=== PATIENT | male | born 1950 | race Caucasian/White ===

== ENCOUNTER → 2019-10-19 15:32 | Outpatient (CLI) | payer MEDICARE, OTHER, SELFPAY ==
--- NOTE | ~2019-10-19 | XR_ITS ---
EXAMINATION: XR wrist LT min 3V DATE: 10/19/2019 15:58 INDICATION: Osteoarthritis. TECHNIQUE: 4 views of left wrist were obtained. COMPARISON: Left hand radiographs 05/30/2012 FINDINGS: Bone alignment is normal. No fracture. There is mild osteoarthritis of radioscaphoid joint and triscaphe joint and severe osteoarthritis of first carpometacarpal joint. There is moderate osteo arthritis of scaphoid-capitate joint with large subchondral cyst in capitate. There is mild osteoarth ritis of first of fibular metacarpophalangeal joints. Again seen is a 2 mm radiopaque foreign body in the soft tissues radial to scaphoid. IMPRESSION: 1. Polyarticular osteoarthritis. 2. Chronic 2 mm radiopaque foreign body in the soft tissues radial to the scaphoid. Reviewed, dictated and finalized at location A. IMPRESSION: 1. Polyarticular osteoarthritis. 2. Chronic 2 mm radiopaque foreign body in the soft tissues radial to the scaph oid.
--- NOTE | ~2019-10-19 | XR_ITS ---
EXAMINATION: XR wrist RT min 3V DATE: 10/19/2019 15:59 INDICATION: Osteoarthritis. TECHNIQUE: 4 views of right wrist were obtained. COMPARISON: None. FINDINGS: Bone alignment is normal. No fracture. There is severe osteoarthritis of scapholunate-capit ate joint with large subchondral cyst in capitate. There is severe osteoarthritis of triscaphe joint, first carpometacarpal joint, and second metacarpophalangeal joint. There is moderate osteoarthritis of third metacarpophalangeal joint and mild osteoarthritis of first metacarpophalangeal joint. IMPRESSION: 1. Polyarticular osteoarthritis. Reviewed, dictated and finalized at location A.
== END ==
PROVIDERS: Visit Provider Plastic Surgery
DX: M19.041 Primary osteoarthritis, right hand (principal); M19.031 Primary osteoarthritis, right wrist
CPT/HCPCS: 73110

== ENCOUNTER 2020-03-14 07:52 | Outpatient (CLI) | payer MEDICARE, SELFPAY ==
--- NOTE | ~2020-03-14 | XR_ITS ---
XR lumbar spine 2-3V 03/14/2020 08:14 Indication: Low back pain Procedure: 3 views lumbar spine Comparison: 07/14/2014 Findings: There is multilevel facet hypertrophy with grade 1 spondylolisthesis at L3-4 and L4-5. Mild disc narrowing at L4-5 and L5-S1. No fracture or traumatic malalignment. Pedicles intact. Sacral for amen are symmetric. There is atherosclerosis. Impression: 1: Moderate lumbar spondylosis. Reviewed, dictated and finalized at location A. PACKER Impression: 1: Moderate lumbar spondylosis.
== END 2020-03-14 07:53 | disposition home or self-care (01) ==
LOC: ANHIMG 08:00
PROVIDERS: PCP Internal Medicine; Visit Provider Internal Medicine
DX: M54.5 Low back pain (principal); G89.29 Other chronic pain; M47.816 Spondylosis without myelopathy or radiculopathy, lumbar region
CPT/HCPCS: 72100

== ENCOUNTER 2021-06-08 08:17 | Outpatient (CLI) | payer MEDICARE, SELFPAY ==
--- NOTE | ~2021-06-08 | XR_ITS ---
EXAMINATION: [id number]_[id number]_CR EXAM DATE: 06/08/2021 08:38 INDICATION: No known recent injury provided at this time. Pain of the right foot. Painful lump latera l aspect. TECHNIQUE: Right foot standing dorsoplantar, lateral and oblique projections obtained and reviewed. There is no prior study for comparison. FINDINGS: There is pes planus. Small calcaneal spurs. There is moderate to severe 1st metatarsophala ngeal joint primary osteoarthritis. There are no acute fractures or dislocations identified. There i s no subcutaneous gas. Nonspecific soft tissue swelling, prominence lateral to the 5th metatarsal ba se without underlying osseous change. There are no radiopaque foreign bodies. There are no bony ero sions identified. IMPRESSION: 1. Nonspecific soft tissue prominence, swelling lateral to right 5th metatarsal base. 2. Moderate to severe 1st MTP osteoarthritis. 3. Pes planus. Reviewed, dictated and finalized at location A. [employer] SPECIALIST IMPRESSION: 1. Nonspecific soft tissue prominence, swelling lateral to right 5th metatarsa l base. 2. Moderate to severe 1st MTP osteoarthritis. 3. Pes planus.
== END 2021-06-08 08:18 | disposition home or self-care (01) ==
LOC: ANHIMG 08:20
PROVIDERS: PCP Internal Medicine; Visit Provider Internal Medicine
DX: M79.671 Pain in right foot (principal); M79.89 Other specified soft tissue disorders; M19.071 Primary osteoarthritis, right ankle and foot; M21.41 Flat foot [pes planus] (acquired), right foot
CPT/HCPCS: 73630

== ENCOUNTER 2021-08-29 09:52 | Outpatient (CLI) | payer MEDICARE, OTHER, SELFPAY ==
--- NOTE | 2021-08-29 10:00 | ECG_ITS ---
Measurements Intervals [place] Rate: 74 P: 50 DC: 149 QRS: 0 QRSD: 96 T: 34 QT: 378 QTc: 420 Interpretive Statements SINUS RHYTHM VENTRICULAR TRIGEMINY CONSIDER INFERIOR INFARCT, AGE INDETERMINATE ABNORMAL ECG Electronically Signed On 08-29-2021 14:13:29 CDT by Haseeb Bland D.O.
== END 2021-08-29 09:53 | disposition home or self-care (01) ==
PROVIDERS: PCP Internal Medicine; Visit Provider Urology
DX: Z01.818 Encounter for other preprocedural examination (principal); I10 Essential (primary) hypertension; R94.31 Abnormal electrocardiogram [ECG] [EKG]
CPT/HCPCS: 93005

== ENCOUNTER 2021-08-31 01:22 | Day surgery (SDC) | payer MEDICARE, OTHER, SELFPAY ==
--- NOTE | 2021-08-29 07:23 | PM.IMHP ---
H&P: HPI History of Present Illness Date/Time: 08/29/21 07:23 Chief Complaint: Difficulty urinating Narrative: patient is a several year history of progressive irritable and obstructive voiding symptoms secondary to BPH. He reports both urinary frequency urgency as well as his N/C and a sense of incomplete emptying. He has had only moderate response to attempts at medical management. Outpatient evaluation with urodynamics and transrectal ultrasonography revealed findings consistent with outlet obstruction secondary to BPH. After discussion of therapy options he has elected to proceed with a TURP. We did discuss alternative minimally invasive procedures. He is aware of the risk of this procedure including, but not limited to, adverse cardiopulmonary events, retrograde ejaculation. Postoperative hematuria persistent voiding symptoms. Review of Systems Cardiovascular: Cardiovascular: Denies chest pain, Denies lightheadedness, Denies palpitations and Denies dyspnea Respiratory: Respiratory: Denies dyspnea Gastrointestinal: Gastrointestinal: Denies diarrhea, Denies nausea and Denies vomiting Genitourinary: Genitourinary: Denies hematuria and Denies dysuria Endocrine: Endocrine: Denies palpitations [facility] Past Medical History Medical History (Updated 08/29/21 @ 07:25 by Jose Davies MD) Benign essential hypertension BMI 27.0-27.9,adult BMI 28.0-28.9,adult Boil, back BPH (benign prostatic hyperplasia) Chronic low back pain Colon cancer screening Diverticular disease DJD (degenerative joint disease) Ectopic beats Elevated homocysteine Encounter for Medicare annual wellness exam Encounter for routine adult health examination with abnormal findings Encounter for routine adult health examination without abnormal findings Encounter for special screening examination for neoplasm of prostate Foot pain Hearing loss Hx of Walters's palsy Hx of colonic polyps Hyperlipidemia Inclusion cyst 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 ALICIA on CPAP Peripheral neuropathy Statin intolerance Trigger finger of right hand Surgical History Surgical History History of bowel resection Status post total knee replacement, left Family History Family History Mother Family history of Alzheimer's disease Father Family history of primary malignant neoplasm of liver Social History Social History Smoking status: Never smoker Alcohol intake: never Meds Home Medications and Allergies Home Medications Medication Instructions Recorded Confirmed Type finasteride 5 mg tablet 5 mg PO DAILY 03/19/19 06/09/21 History hydrocortisone 1 %-pramoxine 1 % 1 applic RECTAL QID 03/19/19 06/09/21 History rectal foam (Proctofoam HC) omega-3 fatty acids 1,000 mg 2,000 mg PO BID 04/02/19 06/09/21 History capsule (Fish Oil Concentrate) calcium carb and lactate 200 2 tablet PO DAILY 09/07/19 06/09/21 History mg-vitamin D3 6.25 mcg (250 unit) tablet vitamin B complex 1 cap PO DAILY 05/04/20 06/09/21 History bempedoic acid 180 mg-ezetimibe 10 1 tablet PO DAILY #90 tabs 09/15/20 06/09/21 Rx mg tablet (Nexlizet) trazodone 50 mg tablet See Rx Instructions .Route 11/07/20 06/09/21 Rx .COMPLEX #180 tabs WelChol 3.75 gram oral powder See Rx Instructions .Route 04/23/21 06/09/21 Rx packet (colesevelam) .COMPLEX #90 packets amlodipine 10 mg tablet See Rx Instructions .Route 04/23/21 06/09/21 Rx .COMPLEX #90 tabs olmesartan 40 mg tablet See Rx Instructions .Route 04/23/21 06/09/21 Rx .COMPLEX #90 tabs diclofenac sodium 75 mg See Rx Instructions .Route 06/06/21 06/09/21 Rx tablet,delayed release .COMPLEX #180 tabs Allergies Allergy/AdvReac Type Severity Reaction Status Date / Time SARY Inhibitors Allergy Unknown Cough Verified 01/25/21 07:48 Glptxma-QIA-OdI Reductas
--- NOTE | 2021-08-29 08:18 | PC.NURSE ---
Report to the Outpatient Waiting Room, entrance under the green pavilion located off [facility], at time _0915 on date __08/31/21 . OR Time: __1115 . - You and your visitor will be asked a series of questions to screen for COVID 19 for your protection. - Only one visitor is allowed at this time. - The patient visitor is requested to leave or wait in car when not with patient. - A mask is required within the hospital. Patients may have clear liquids (water, carbonated beverages, clear teas, apple juice) until 3 hours prior to surgery with a maximum of 20 ounces. - No food from midnight until time of surgery - Infants may have breast milk until 4 hours before surgery, infant formula 6 hours prior to surgery. - Children will be allowed to drink immediately following surgery. If applicable, please bring a bottle or sippy cup to assist with drinking. Juice, water, soda, and popsicles are readily available. For infants on formula, please bring formula the day of surgery. Pacifiers are allowed. Take the following medications with a SIP of water the morning of surgery: ____AMLODIPINE Medications to discontinue per physician ___ALL VITAMINS AND SUPPLEMENTS 3 DAYS PRE OP Date to take last dose___08/28/21 Please no make-up, nail german, hairspray, perfume, deodorant, or body powder the day of surgery. No jewelry (including any body piercings) or valuables the day of surgery, leave them at home. Please take a shower or bath the night before, or the morning of, surgery with an antibacterial soap. Wear comfortable, loose fitting clothing. Children are encouraged to wear pajamas. - Jewelry must be removed prior to entering the operating room. Rings and piercings that are not removed may be cut off. - The hospital will not accept responsibility for valuables. - Please leave all valuables, including medications, at home the day of surgery. If you are going home after surgery, a licensed public transit trolley driver must drive you home. - NO public transportation without another adult. - We recommend that an adult stay with you for 24 hours following discharge. - We also recommend that you do not drive, make important decision, drink alcoholic beverages, or take any drugs that were not prescribed by your health care provider for at least 24 hours after your discharge time. For Pediatric surgeries, we recommend two adults accompany the child home (only one inside the building at this time). Follow any additional instructions given to you from your surgeon. If you or anyone in your household have experienced Covid symptoms in the past week, please notify your surgeon or the nurse liaison at the phone number below for possible testing. Telephone instructions given to __PATIENT and asked if any additional questions and then verbalized understanding. Patient advised to call surgeon office or pre surgery nurse liaison [phone] if any additional questions.
[2021-08-29 08:39] VITALS: BMI 27.8
[2021-08-31] VITALS (13 sets, daily range): BP systolic 96–136; BP diastolic 55–81; PULSE 34–66; RESP 11–20; TEMP 36.3–36.6; O2SAT 93–100; BMI 27.3
--- NOTE | 2021-08-31 06:32 | WPDHPUPDATE1 ---
History and Physical Update Update Date/Time: 08/31/21 06:32 History and Physical has been reviewed, including an updated exam of the patient. There are NO changes in the patient's condition. Risks, benefits, and alternatives have been discussed and questions answered. Patient agrees to proceed with procedure.
--- NOTE | 2021-08-31 09:56 | WPDANESEPPF ---
Anes - Initial Pre Proc Eval Procedure: Operation Date: 08/31/21 11:15 Proposed Procedures p Trans Urethral Resection Prostate - Jose Davies MD Date/Time: 08/31/21 09:56 Surgeon: Jose Davies MD Pre Op Diagnosis: BPH Patient Data Age: 71 Gender: M Height: 1.88 m Weight: 98.45 kg Allergies Allergy/AdvReac Type Severity Reaction Status Date / Time SARY Inhibitors Allergy Unknown Cough Verified 08/29/21 08:07 Vdioypz-OQW-HrN Reductase Allergy Unknown Joint Pain Verified 08/29/21 08:07 Inhibitor [Trjkmko-Env-Riu Reductase Inhibitor] Home Medications Medication Instructions Recorded Confirmed Type finasteride 5 mg tablet 5 mg PO DAILY 03/19/19 08/29/21 History omega-3 fatty acids 1,000 mg 2,000 mg PO BID 04/02/19 08/29/21 History capsule (Fish Oil Concentrate) calcium carb and lactate 200 1 tablet PO DAILY 09/07/19 08/29/21 History mg-vitamin D3 6.25 mcg (250 unit) tablet vitamin B complex 1 cap PO DAILY 05/04/20 08/29/21 History bempedoic acid 180 mg-ezetimibe 10 1 tablet PO DAILY #90 tabs 09/15/20 08/29/21 Rx mg tablet (Nexlizet) trazodone 50 mg tablet See Rx Instructions .Route 11/07/20 08/29/21 Rx .COMPLEX #180 tabs WelChol 3.75 gram oral powder See Rx Instructions .Route 04/23/21 08/29/21 Rx packet (colesevelam) .COMPLEX #90 packets olmesartan 40 mg tablet See Rx Instructions .Route 04/23/21 08/29/21 Rx .COMPLEX #90 tabs diclofenac sodium 75 mg See Rx Instructions .Route 06/06/21 08/29/21 Rx tablet,delayed release .COMPLEX #180 tabs amlodipine 10 mg tablet 5 mg PO DAILY 08/29/21 08/29/21 History tamsulosin 0.4 mg capsule 0.4 cap PO DAILY 08/29/21 08/29/21 History Patient hx anesthesia problems: none Family hx anesthesia problems: none Results Review: All pre-operative results and documents have been reviewed as part of the pre-operative evaluation. [facility] Past Medical History Medical History Benign essential hypertension BMI 27.0-27.9,adult BMI 28.0-28.9,adult Boil, back BPH (benign prostatic hyperplasia) Chronic low back pain Colon cancer screening Diverticular disease DJD (degenerative joint disease) Ectopic beats Elevated homocysteine Encounter for Medicare annual wellness exam Encounter for routine adult health examination with abnormal findings Encounter for routine adult health examination without abnormal findings Encounter for special screening examination for neoplasm of prostate Foot pain Hearing loss Hx of Walters's palsy Hx of colonic polyps Hyperlipidemia Inclusion cyst On long-term drug therapy ALICIA on CPAP Peripheral neuropathy Statin intolerance Trigger finger of right hand Surgical History Surgical History History of bowel resection Status post total knee replacement, left Family History Family History Mother Family history of Alzheimer's disease Father Family history of primary malignant neoplasm of liver Social History Social History Smoking status: Never smoker Alcohol intake: never Living arrangements: with family Spiritual care concerns: No Anes - Eval Final PreProcedure Day of Procedure 08/31/21 09:56 Patient weight: overweight Heart: regular rate and rhythm Lungs: clear to auscultation Airway: Mallampati scale class II Neurological: alert and oriented Last oral intake: >/= 8 hours ASA classification: III Emergent: no Anesthetic plan: proceed Anesthesia type and monitoring: general GIVS and standard monitoring Results Review: All pre-operative results and documents have been reviewed as part of the pre-operative evaluation. Informed Consent: The patient's anesthetic plan and its attendant risks and benefits were discussed with the patient/family/POA. Questions were leslie
[2021-08-31] MEDS: LACTATED RINGERS 1,000 ML 30 ML IV CONT ×2 (10:00→11:50)
[2021-08-31] MEDS: ceFAZolin 2 GM/D5W 50 ML 2 GM/50 ML BAG IVPB (10:27)
[2021-08-31] MEDS: KETOROLAC 15 MG/ML VIAL (*BKC) IV PUSH (10:30)
[2021-08-31] MEDS: LIDOCAINE HCL 2% GEL UROJET 10 ML PKG MUCOUS MEM (10:42)
--- NOTE | 2021-08-31 11:21 | W.PM.PROC2 ---
Procedure Note - Detailed Date of Procedure 08/31/21 Pre-op Diagnosis BPH Post-op Diagnosis Same Procedure Performed TURP Surgeon Jose Davies MD Description of Procedure The patient was brought to the operative suite where he is prepped and draped in routine sterile fashion while in the dorsal lithotomy position after the uneventful induction of a [general LMA/spinal] anesthetic. A 27 [place] resectoscope sheath was placed into his bladder. He had no urethral strictures. The patient had [trilobar/bilobar] hyperplasia with a small median lobe. The bladder itself was endoscopically normal, showing no mucosal hyperemia, intravesical neoplasm or foreign bodies. There was a single, orthotopic ureteral orifice bilaterally. These orifices were identified and preserved throughout the remainder of the procedure. Attention was first turned to resection of the median lobe. This resection was undertaken from the bladder neck to the verumontanum and carried out until the transverse fibers of the bladder neck were identified. The left lateral lobe was then resected starting at the 6 o'clock position, working counter clockwise to the 12 o'clock position. Again, resection was carried out from the bladder neck to the verumontanum until the capsular fibers of the prostate were identified. The right lateral lobe was resected in a similar fashion starting at the 6 o'clock position working clockwise to the 12 o'clock position and carried out until the capsular fibers of the prostate were identified. Apical tissue was then circumferentially resected. All chips were evacuated from the bladder using an [employer] evacuator. Hemostasis was obtained with electric cautery. The ureteral orifices were again inspected and found to be without injury. Estimated blood loss throughout this procedure was 25cc. The patient was taken to recovery room having tolerated this well. Pathology Yes Complications No immediate complications Condition Stable Disposition PACU
--- NOTE | 2021-08-31 12:30 | SUR.PHASEI ---
1215; PT AWAKE AND ALERT. TALKATIVE. EATING ICE CHIPS
--- NOTE | 2021-08-31 13:04 | PC.NURSE ---
This patient, Lino Wu, was admitted to Medical Room 243-. Patient/family oriented to hospital policies and general routines including ID bracelet, bed and alarms, visiting hours, pain management, procedures, bathroom and other care routines, personal items, smoking policy, room service/diet, and visiting hours. Information on how to activate the Rapid Response Team has been discussed. Patient/Family are encouraged to report perceived risks to care and to ask questions if they do not understand what they are told or what they should do.
[2021-08-31] MEDS: DEXTROSE 5%/LACTATED RINGERS 1,000 ML 125 ML IV CONT (13:23)
[2021-08-31] MEDS: DOCUSATE SODIUM 100 MG CAPSULE PO (16:19)
[2021-08-31] MEDS: traZODone HCL 50 MG TABLET 100 MG BY MOUTH (22:06)
[2021-09-01 00:18] VITALS: BP 103/46; PULSE 65; RESP 20; TEMP 36.5; O2SAT 95
[2021-09-01 04:13] VITALS: BP 124/60; PULSE 60; RESP 20; TEMP 36.1; O2SAT 98
[2021-09-01 06:07] LABS: Anion Gap 3 mmol/L (8-16); Blood Urea Nitrogen 18 mg/dL (9-20); Calcium 8.8 mg/dL (8.4-10.2); Carbon Dioxide 29 mmol/L (22-30); Chloride 102 mmol/L (98-107); Estimated CRCL calculation 77 ml/min; Estimated Glomerular Filt Rate > 60; Glucose 96 mg/dL (65-110); Potassium 4.3 mmol/L (3.4-5.0); Sodium 134 mmol/L (137-145)
[2021-09-01 06:11] LABS: Hematocrit 41.8 % (42.0-52.0); Hemoglobin 13.6 g/dL (14.0-18.0)
--- NOTE | 2021-09-01 07:31 | WPDUROPN2 ---
Progress Note: A&P Assessment and Plan (1) BPH loc w urin obs/LUTS: Code(s): N40.1 - Benign prostatic hyperplasia with lower urinary tract symptoms Status: Acute Assessment and Plan: Doing well POD #1 - urine clear and tolerating diet. Stop CBI / voiding trial later this morning. Subjective Subjective Date/Time Seen: 09/01/21 07:31 Comfortable, no complaints Review of Systems Cardiovascular: Cardiovascular: Denies chest pain, Denies lightheadedness, Denies palpitations and Denies dyspnea Respiratory: Respiratory: Denies dyspnea Gastrointestinal: Gastrointestinal: Denies diarrhea, Denies nausea and Denies vomiting Genitourinary: Genitourinary: Denies hematuria and Denies dysuria Endocrine: Endocrine: Denies palpitations Exam Const: General: no acute distress Resp: Effort & Inspection: normal respiratory effort GI: Inspection: non-distended GI Palp: No abdominal tenderness and No Guarding due to palpation present (GI) Auscultation: normal bowel sounds Objective Data Vital Signs Vital Signs: Vital Signs - 24 hr 08/31/21 10:40 08/31/21 11:27 08/31/21 11:40 Temperature 97.8 F 97.6 F Pulse Rate 63 61 60 Respiratory Rate 16 11 L 14 Blood Pressure 127/80 136/71 121/77 Pulse Oximetry 97 97 100 Oxygen Delivery Room Air Simple Face Mask Simple Face Mask Oxygen Flow Rate 6 6 08/31/21 11:55 08/31/21 12:10 08/31/21 12:25 Temperature Pulse Rate 56 L 55 L 56 L Respiratory Rate 14 18 18 Blood Pressure 115/61 128/76 111/73 Pulse Oximetry 100 97 98 Oxygen Delivery Simple Face Mask Room Air Room Air Oxygen Flow Rate 6 08/31/21 13:00 08/31/21 13:15 08/31/21 13:45 Temperature 97.3 F L 97.6 F 97.6 F Pulse Rate 48 L 51 L 50 L Respiratory Rate 18 18 18 Blood Pressure 124/62 119/73 120/55 L Pulse Oximetry 99 96 95 Oxygen Delivery Oxygen Flow Rate 08/31/21 14:45 08/31/21 18:16 08/31/21 20:17 Temperature 97.5 F L 97.9 F 97.6 F Pulse Rate 34 L 66 65 Respiratory Rate 16 16 20 Blood Pressure 96/73 L 133/81 123/58 L Pulse Oximetry 93 100 97 Oxygen Delivery Oxygen Flow Rate 08/31/21 20:21 09/01/21 00:18 09/01/21 04:13 Temperature 97.6 F 97.7 F 96.9 F L Pulse Rate 65 65 60 Respiratory Rate 20 20 20 Blood Pressure 123/58 L 103/46 L 124/60 Pulse Oximetry 97 95 98 Oxygen Delivery Oxygen Flow Rate Intake/Output Intake/Output: Intake & Output 08/29/21 08/30/21 08/31/21 09/01/21 23:59 23:59 23:59 23:59 Intake Total 2120 290 Output Total 5450 1450 Balance -3330 -1160 Meds/Results Medications: Active Medications Generic Name Dose Route Start Last Admin Trade Name Freq PRN Reason Stop Dose Admin Hydrocodone Bitart/Acetaminophen 1 tab 08/31/21 12:31 Hydrocodone/Acetaminophen (*Crx) 5-325 Mg Tablet PO Q4H PRN Pain Rated 1-6 Amlodipine Besylate 5 mg 09/01/21 09:00 Amlodipine Besylate 5 Mg Tablet PO DAILY [facility] Cephalexin HCl 500 mg 09/01/21 09:00 Cephalexin 500 Mg Capsule PO QID [facility] Docusate Sodium 100 mg 08/31/21 17:00 08/31/21 16:19 Docusate Sodium 100 Mg Capsule PO 100 mg BID [facility] Administration Hyoscyamine 0.125 mg 08/31/21 12:31 Hyoscyamine Sulfate 0.125 Mg Tablet SUBLINGUAL Q6H PRN Bladder Spasm Miscellaneous Information 1 each 08/31/21 00:01 Colesevelam [Welchol] 3.75 Gram Powder In Packet Is Non Formulary Can Patient Use From Angella XX 09/30/21 00:00 CLARIFY [facility] Miscellaneous Information 1 each 08/31/21 00:01 Bempedoic Acid-Ezetimibe [Nexlizet] 180-10 Mg Tablet Is Non Formulary Can Patient Use From XX 09/30/21 00:00 CLARIFY [facility] Miscellaneous Information 1 each 08/31/21 00:01 Calcium Carb,Lactat-Vitamin D3 200 Mg Calcium -250 Unit Tablet Is Non Formulary. Can We S XX 09/30/21 00:00 CL[facility]IFY [facility] Morphine Sulfate 2 mg 08/31/21 12:31 Morphine Sulfate (*Crx) 2 Mg/Ml Inj IV PUSH Q2H PRN Pain Rated 7-10 Naloxone HC
[2021-09-01 08:02] VITALS: BP 127/77; PULSE 69
[2021-09-01] MEDS: DOCUSATE SODIUM 100 MG CAPSULE PO (08:03)
[2021-09-01] MEDS: amLODIPine BESYLATE 5 MG TABLET PO (08:04)
[2021-09-01] MEDS: VITAMIN B COMPLEX CAPSULE 1 CAP PO (08:04)
[2021-09-01] MEDS: CEPHALEXIN 500 MG CAPSULE PO ×2 (08:04→13:05)
[2021-09-01] MEDS: OLMESARTAN MEDOXOMIL 20 MG TABLET 40 MG PO (08:05)
--- NOTE | 2021-09-01 09:12 | WPDANESPN ---
Anes - Prog Note Post-Op Date/Time: 09/01/21 09:12 Vital Signs: Last Vital Signs Temp 36.1 C L 09/01/21 04:13 Pulse 69 09/01/21 08:02 Resp 20 09/01/21 04:13 BP 127/77 09/01/21 08:02 Pulse Ox 98 09/01/21 04:13 O2 Del Method Room Air 08/31/21 12:25 O2 Flow Rate 6 08/31/21 11:55 Pain Score (VAS): 0 I/O: Intake & Output 08/31/21 09/01/21 09/01/21 23:59 07:59 15:59 Intake Total 1770 290 460 Output Total 1750 1450 Balance 20 -1160 460 Laboratory Tests 09/01/21 05:17 09/01/21 05:17 09/01/21 09/01/21 05:17 05:17 Hgb 13.6 L Hct 41.8 L Sodium 134 L Potassium 4.3 Chloride 102 Carbon Dioxide 29 Anion Gap 3 L BUN 18 Creatinine 0.90 Estim Creat Clear Calc 77 Estimated GFR > 60 Glucose 96 Calcium 8.8 Patient Feedback: Patient satisfied with anesthetic care.
[2021-09-01 10:30] VITALS: BP 137/120; PULSE 67; RESP 16; TEMP 36.4; O2SAT 99
--- NOTE | 2021-09-01 12:51 | PM.DS ---
DS: Admitting Diagnosis Discharge Date 09/01/2021 Admitting Diagnosis BPH DS: Summary Hospital Course Hospital Course: This patient with longstanding prostatism refractory for medical management was admitted on the morning of his planned TURP. The procedure was undertaken on that same day in an uneventful fashion. His post-operative course was, likewise, uneventful. On the evening of the procedure he was tolerating a diet. On POD#1 his urine was clear on CBI. The urine remained clear and, therefore, the catheter was removed late morning. The patient was observed for several hours, until he demonstrated he could void effectively without significant hematuria. He was discharged with careful instruction on limiting physical activity x2 weeks and plans to f/ in 2-3 weeks. At discharge he was comfortable and tolerating a diet. Time Spent with Patient Time attestation: Total time spent providing and/or coordinating discharge services: Exam Const: General: no acute distress Resp: Effort & Inspection: normal respiratory effort GI: Inspection: non-distended GI Palp: No abdominal tenderness and No Guarding due to palpation present (GI) Auscultation: normal bowel sounds DS: Data Data Completed and Pending Pending studies at discharge: Pending at discharge 08/31/21 10:57 Surgical [PTH] Routine Labs on day of discharge: Labs from last 24 hours 09/01/21 09/01/21 05:17 05:17 Hgb 13.6 L Hct 41.8 L Sodium 134 L Potassium 4.3 Chloride 102 Carbon Dioxide 29 Anion Gap 3 L BUN 18 Creatinine 0.90 Estim Creat Clear Calc 77 Estimated GFR > 60 Glucose 96 Calcium 8.8 Discharge Plan Discharge Patient Disposition: Home, Self-Care Discharge Instructions: 1) Activity: No lifting/straining >15lbs. x2 weeks. 2) Diet: Resume normal pre-admission diet. 3) Follow-up: 2-3 weeks / call office for appointment ([phone]). Stand Alone Forms: General Discharge Instructions Discharge Orders: Discharge Order (Routine); Ordered 09/01/21 Ordered By: Jose Davies Discharge Medications: New hydrocodone-acetaminophen 5-325 mg tablet 1 - 2 tablet PO Q6H PRN (Reason: pain) Qty: 20 0RF docusate sodium [Colace] 100 mg capsule 100 mg PO DAILY Qty: 30 0RF cephalexin 500 mg capsule 500 mg PO Q8H Qty: 9 0RF Continued calcium carb,lactat-vitamin D3 200 mg calcium -250 unit tablet 1 tablet PO DAILY Nexlizet 180-10 mg tablet 1 tablet PO DAILY Qty: 90 3RF Rx Instructions: D/C the Zetia. vitamin B complex Capsule 1 cap PO DAILY amlodipine 10 mg tablet 5 mg PO DAILY Rx Instructions: TAKE 1 TABLET DAILY trazodone 50 mg tablet See Rx Instructions .ROUTE .COMPLEX Qty: 180 3RF Dose Instruction: TAKE 2 TABLETS AT BEDTIME FOR SLEEP Rx Instructions: TAKE 2 TABLETS AT BEDTIME FOR SLEEP colesevelam [WelChol] 3.75 gram powder in packet See Rx Instructions .ROUTE .COMPLEX Qty: 90 3RF Dose Instruction: MIX AND DRINK 1 PACKET DAILY DISSOLVED IN 120 TO 240 ML OF WATER. STIR AND DRINK WITH A MEAL. Rx Instructions: MIX AND DRINK 1 PACKET DAILY DISSOLVED IN 120 TO 240 ML OF WATER. STIR AND DRINK WITH A MEAL. olmesartan 40 mg tablet See Rx Instructions .ROUTE .COMPLEX Qty: 90 3RF Dose Instruction: TAKE 1 TABLET DAILY Rx Instructions: TAKE 1 TABLET DAILY diclofenac sodium 75 mg tablet,delayed release (DR/EC) See Rx Instructions .ROUTE .COMPLEX Qty: 180 1RF Dose Instruction: TAKE 1 TABLET TWICE A DAY Rx Instructions: TAKE 1 TABLET TWICE A DAY Held omega-3 fatty acids [Fish Oil Concentrate] 1,000 mg capsule 2,000 mg PO BID Hold Instructions: Resume on 09/13/21. Discontinued finasteride 5 mg tablet 5 mg PO DAILY tamsulosin 0.4 mg capsule 0.4 cap PO DAILY
== END 2021-09-01 13:13 | disposition home or self-care (01) ==
LOC: ANHSURGERY 09:12 → ANH2MED 12:28
PROVIDERS: PCP Internal Medicine; Visit Provider Urology
PROC: 0VT08ZZ Resection of Prostate, Via Natural or Artificial Opening Endoscopic (ICD-10-PCS; CPT 52601; principal; 2021-08-31 11:15)
DX: N40.1 Benign prostatic hyperplasia with lower urinary tract symptoms (principal); R33.8 Other retention of urine; N13.9 Obstructive and reflux uropathy, unspecified; I10 Essential (primary) hypertension; G47.33 Obstructive sleep apnea (adult) (pediatric); M19.90 Unspecified osteoarthritis, unspecified site; I49.49 Other premature depolarization; E72.11 Homocystinuria; E78.5 Hyperlipidemia, unspecified; G62.9 Polyneuropathy, unspecified
CPT/HCPCS: 52601; 36415; 80048; 85014; 85018; 88305; A9270; C1758; J0690; J1100; J1885; J2405; J2704; J3010; J7120; J7121

== ENCOUNTER 2022-03-07 07:18 | Outpatient (CLI) | payer MEDICARE, OTHER, SELFPAY ==
--- NOTE | ~2022-03-07 | XR_ITS ---
EXAM: XR shoulder LT min 2V DATE: 03/07/2022 07:32 HISTORY: R29.898 - Other symptoms and signs involving the musculos... . COMPARISON: 07/14/2014. FINDINGS: Left upper lobe calcified granulomas. Decreased mineralization. No fracture or dislocation . No lytic or blastic lesion. Moderate AC joint and mild glenohumeral joint osteoarthritis. No erosio n or periosteal change. Soft tissues within normal limits. IMPRESSION: No acute osseous finding in the left shoulder. Reviewed, dictated and finalized at location K. TRUCKER
== END 2022-03-07 07:19 | disposition home or self-care (01) ==
LOC: ANHIMG 07:20
PROVIDERS: PCP Internal Medicine; Visit Provider Internal Medicine
DX: M25.512 Pain in left shoulder (principal); R29.898 Other symptoms and signs involving the musculoskeletal system
CPT/HCPCS: 73030

== ENCOUNTER 2023-01-02 08:08 | Outpatient (CLI) | payer MEDICARE, OTHER, SELFPAY ==
--- NOTE | ~2023-01-02 | NM_ITS ---
EXAMINATION: NM bone scan whole body DATE: 01/02/2023 12:27 INDICATION: Prostate cancer TECHNIQUE: 26.5 mCi Tc-99m HDP was administered intravenously. Delayed whole-body scintigrams were o btained. COMPARISON: CT dated 01/02/2023, right shoulder radiographs dated 12/07/2022 FINDINGS: Scattered likely degenerative joint centered uptake with corresponding severe osteoarthritic changes on prior radiographs at the right glenohumeral joint and on the prior CT at the costovertebral articu lations on the right at T7 and on the left at T8 and T9. Additional likely degenerative joint centere d uptake at the right knee and multiple joints at the bilateral wrists, hands and feet and disc cente red uptake at the lower cervical spine. Photopenic defect associated with a left total knee arthropla sty. There is a focus of prominent uptake at the midline of the anterior upper chest in the region of the sternomanubrial articulation suggesting is also likely degenerative in etiology. No other suspic ious foci of abnormal bone uptake to suggest metastatic disease. IMPRESSION: 1. Scattered likely degenerative joint and disc centered uptake as detailed above. No lesion suspicio us for metastatic disease. Reviewed, dictated and finalized at location A. IMPRESSION: 1. Scattered likely degenerative joint and disc centered uptake as detailed abo ve. No lesion suspicious for metastatic disease.
--- NOTE | ~2023-01-02 | CT_ITS ---
CT of the Abdomen and Pelvis: Indication: Prostate cancer Technique: 2.5 mm axial scans were obtained through the abdomen and pelvis following intravenous adm inistration of 100 cc of Omnipaque 350. Dose reduction technique was used on this scan by utilizing a utomated exposure control and iterative reconstruction technique. The dose-length product (DLP) was 9 58.43 mGy-cm. COMPARISON: 05/20/2017 Findings: Scans through the lung bases demonstrate 2 mm left basilar pulmonary nodule. There are min imal peripheral chronic interstitial changes. Small hiatal hernia noted. The liver, spleen, pancreas, gallbladder, right adrenal gland, and kidneys are within normal limits. There is a 1.3 cm left adrenal nodule. There are atherosclerotic calcifications of the aorta. No lym phadenopathy. No bowel obstruction or bowel wall thickening. Rectosigmoid anastomosis noted. Images through the pelvis were performed. Urinary bladder unremarkable. No gross prostate lesion iden tified on CT imaging. No ascites. No suspicious osseous lesion identified. Impression: No definite evidence for metastatic disease. 1.3 cm left adrenal nodule stable since 2017, consistent with adenoma. 2 mm left basilar pulmonary nodule, most likely benign. Reviewed, dictated and finalized at location . Impression: No definite evidence for metastatic disease. 1.3 cm left adrenal nodule stable since 2017, consistent with adenoma. 2 mm left basilar pulmonary nodule, most likely benign.
[2023-01-02 08:30] LABS: Estimated Glomerular Filt Rate > 60
== END 2023-01-02 08:09 | disposition home or self-care (01) ==
LOC: ANHIMG 08:08
PROVIDERS: PCP Internal Medicine; Visit Provider Urology
DX: C61 Malignant neoplasm of prostate (principal); R91.1 Solitary pulmonary nodule
CPT/HCPCS: 74177; 78306; A9503; Q9967

== ENCOUNTER 2023-04-05 07:28 | Outpatient (CLI) | payer MEDICARE, OTHER, SELFPAY ==
--- NOTE | ~2023-04-05 | MR_ITS ---
EXAMINATION: MR pelvis wo/w con DATE: 04/05/2023 08:34 INDICATION: Prostate cancer. TECHNIQUE: Magnetic resonance imaging (MRI) of the pelvis was performed without and with 20 mL MultiH ance intravenous contrast. COMPARISON: CT abdomen and pelvis 01/02/2023 FINDINGS: The prostate is normal in size. There is diverticulosis of the colon without evidence of diverticulit is. There is a right inguinal hernia containing fat. There are no pathologically enlarged lymph nodes . There is a spacer between the rectum and prostate. No ascites. There is no osseous metastatic disea se. IMPRESSION: 1. No evidence of metastatic disease. Reviewed, dictated and finalized at location E. RAL TECHNICIAN
== END 2023-04-05 07:29 | disposition home or self-care (01) ==
PROVIDERS: PCP Internal Medicine; Visit Provider Radiology Radiation Oncology
DX: C61 Malignant neoplasm of prostate (principal)
CPT/HCPCS: 72197; A9577

== ENCOUNTER 2023-06-21 08:04 | Outpatient (CLI) | payer MEDICARE, SELFPAY ==
--- NOTE | ~2023-06-21 | US_ITS ---
Abdominal Sonogram: Real-time sonographic imaging of the abdomen was performed. Clinical History: Abnormal LFTs Findings: The liver appears echogenic, with no evidence of mass lesion or bile duct dilatation. Main portal vein demonstrates normal direction of flow. The spleen is normal in size without evidence of focal lesion. The gallbladder is well distended, without evidence of gallstone. 4 mm gallbladder wal l polyp present. The common bile duct measures 5 mm. The visualized pancreas, aorta, and IVC are unr emarkable. The right kidney measures 10.3 cm in length and the left kidney measures 11.9 cm. There is no hydronephrosis or renal calculus. Impression: Diffuse fatty infiltration of liver. 4 mm gallbladder wall polyp. Reviewed, dictated and finalized at location . Impression: Diffuse fatty infiltration of liver. 4 mm gallbladder wall polyp.
== END 2023-06-21 08:05 ==
PROVIDERS: PCP Internal Medicine; Visit Provider Internal Medicine
DX: R74.01 Elevation of levels of liver transaminase levels (principal); K76.0 Fatty (change of) liver, not elsewhere classified; K82.4 Cholesterolosis of gallbladder
CPT/HCPCS: 76700

== ENCOUNTER 2023-07-07 07:25 | Outpatient (CLI) | payer MEDICARE, OTHER, SELFPAY ==
--- NOTE | ~2023-07-07 | MR_ITS ---
MRI of the right shoulder Technique: Axial proton-density fat-sat images, coronal proton density fat-sat and T2 fat-sat images, and sagittal T1-weighted and T2 fat-sat images were acquired. Clinical History: Pain Findings: There is advanced AC joint degenerative change, with probably superior bony productive taylor ge at the distal clavicle and acromion. Coracoclavicular, coracoacromial, and coracohumeral ligaments appear intact. Supraspinatus and infraspinatus tendons demonstrate moderate to advanced tendinosis without partial o r full-thickness tear. Subscapularis tendon is intact. Tendon of the long head of the biceps is intac t with intra-articular tendinosis. There is probable circumferential degenerative labral tearing. There is severe osteoarthritis of the glenohumeral joint, with diffuse joint space narrowing, diffuse grade IV chondromalacia, and multifocal subchondral cystic change at the humeral head and glenoid. I nferior glenohumeral ligament is intact. There are small glenohumeral joint effusion. There is minima l fluid in the subacromial/subdeltoid bursa. No muscle atrophy or edema. Impression: Severe osteoarthritis of the glenohumeral joint, as detailed above. Associated probable circumferential degenerative labral tearing. Rotator cuff tendinosis without partial or full-thickness tear. Advanced AC joint degenerative change. Reviewed, dictated and finalized at [facility]. Impression: Severe osteoarthritis of the glenohumeral joint, as detailed above. Associated probable circumferential degenerative labral tearing. Rotator cuff tendinosis without partial or full-thickness tear. Advanced AC joint degenerative change.
== END 2023-07-07 07:26 | disposition home or self-care (01) ==
LOC: ANHIMG 07:26
PROVIDERS: PCP Internal Medicine; Visit Provider Internal Medicine
DX: M19.011 Primary osteoarthritis, right shoulder (principal); M75.21 Bicipital tendinitis, right shoulder
CPT/HCPCS: 73221

== ENCOUNTER 2024-07-23 01:19 | Day surgery (SDC) | payer MEDICARE, OTHER, SELFPAY ==
[2024-07-14 13:51] VITALS: BMI 29.7
--- OUTSIDE RECORDS SUMMARY | 2024-07-23 01:23 | XMS_ITS | Clinical Summary ---
Author Organization [facility] [address] [place] [id number] Care Team Providers Care Pattern Clerk Name Role Phone Jerry Lambert MD Primary Care Provider [phone] Allergies No known active allergies Medications traZODone (DESYREL) 50 mg tablet Take 2 tablets (100 mg total) by mouth nightly 0 Active nebivoloL (BYSTOLIC) 10 mg tablet Take 1 tablet (10 mg total) by mouth every morning [address] (VOLTAREN) 75 mg EC tablet Take 1 tablet (75 mg total) by mouth 3 (three) times a day 0 Active WelChoL 3.75 gram powder in packet Take by mouth every morning 0 Active Nexlizet 180-10 mg tablet Take 1 tablet by mouth every morning 1 Active amLODIPine (NORVASC) 10 mg tablet Take 0.5 tablets (5 mg total) by mouth every morning 0 Active omega-3 fatty acids-fish oil 300-1,000 mg capsule Take 2 capsules (2 g total) by mouth every morning Active metFORMIN (GLUCOPHAGE) 500 mg tablet Take 1 tablet (500 mg total) by mouth 2 (two) times a day with meals 4 Active mupirocin (BACTROBAN) 2 % ointment Apply topically daily 4 Active vitamin b complex tablet Take 1 tablet by mouth every morning Active mirabegron ER (MYRBETRIQ) 50 mg tablet extended release 24 hr Take 1 tablet (50 mg total) by mouth every morning Active docusate sodium (COLACE) 100 mg capsuleIndicati ons:constipatio n Take 1 capsule (100 mg total) by mouth 2 (two) times a day For constipation. Hold if having loose stools or diarrhea. 30 capsule 1 4 Active HYDROcodone-lisseth taminophen (NORCO) 5-325 mg per tabletIndicatio ns:Pain Take 1-2 tablets every 4 hours as needed for pain 32 tablet 4 Active Additional Information Patient not taking.Reported on 09/16/2023 aspirin 81 mg enteric coated tablet Take 1 tablet (81 mg total) by mouth daily 30 tablet 4 Active Active Problems Problem Noted Date Diagnosed Date Arthritis of shoulder region, right 07/30/2023 Arthritis of right shoulder region 07/11/2023 Surgical History Surgery Date Site/Laterality Comments CT GUIDED DRAINAGE PERITONEAL OR RETROPERITONEAL FLUID COLLECTION 02/07/2015 N/A JOINT REPLACEMENT 04/01/2011 - 03/31/2012 Left TKA COLON SURGERY 04/01/2021 - 03/31/2022 d/t diverticulitits PROSTATE SURGERY TRANSURETHRAL RESECTION OF PROSTATE 04/01/2021 - 03/31/2022 FOOT SURGERY Left pulled tendon from heel bone and fx heel bone SHOULDER ARTHROSCOPY 07/30/2023 Right right total shoulder arthroplasty Medical History Medical History Date Comments Hypertension Prostate cancer (HCC) Diverticulitis 2018 Arthritis Sleep apnea Disorders of glucose transport, unspecified 2023 Vitamin D deficiency, unspecified Diverticulitis of colon Family History Medical History Relation Name Comments Liver cancer Father Alzheimer's disease Mother Relation Name Status Comments Brother Alive Father Mother Social History Tobacco Use Types Packs/Day Years Used Date Smoking Tobacco: Never Smokeless Tobacco: Never Tobacco Cessation:Counseling Given: Not Answered AUDIT-C Answer Date Recorded Q1: How often do you have a drink containing alcohol? Never 07/22/2023 Q2: How many drinks containi ng alcohol do you have on a typical day when you are drinking? Patient does not drink Q3: How often do you have si x or more drinks on one occasion? Never 07/22/2023 Personal Safety Answer Date Recorded Have you ever been in or are you currently in a harmful physical or emotional relationship or is someone making you feel afraid or unsafe? 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 Gender Identity Not on file Sexual Orientation Not on file Obstetrics History Last Filed Vital Signs Vital Sign Reading Time Taken Comments Blood Pressure 117/72 07/31/2023 12:00 PM CDT Pulse 79 07/31/2023 12:00 PM CDT Temperature 37.2 C (98.9 F) 07/31/2023 12:00 PM CDT Respiratory Rate 16 07/31/2023 12:00 PM CDT Oxygen Saturation 94% 07/31/2023 12:00 PM CDT Inhaled Oxygen Concentration - - Weight 105.7 kg (233 lb) 01/30/2024 9:55 AM CDT Height 188 cm (6' 2 ) 01/30/2024 9:55 AM CDT Body Mass Index 29.92 01/30/2024 9:55 AM CDT Plan of Treatment Health Maintenance Due Date Last Done Comments Albumin Creatinine Ratio, Urine 1950 Colon Cancer Screening-Colonoscopy 1950 Depression Screening 1950 Hepatitis C Screening 1950 Dilated Eye Exam 1950 Foot Exam 1950 Hepatitis B Screening 01/07/1968 Well Visit 65+ 2015 Lipid Panel 02/02/2016 02/01/2015 Covid-19 Vaccine (2023-2 5 season) 2023 02/01/2023, 01/29/2022, 10/19/2021, Additional history exists Hemoglobin A1C 01/09/2024 07/10/2023 Fall Risk Assessment 07/30/2024 07/31/2023 eGFR 07/30/2024 07/31/2023, 07/22/2023 Influenza Vaccine (Season Ended) 2024 01/11/2023, 01/29/2022, 01/02/2021, Additional history exists DTaP/Tdap/Td Vaccine (3 - Td or Tdap) 04/02/2029 04/02/2019, 12/24/2012 Pneumococcal vaccine 65+ Completed 01/31/2019, 05/2014 Zoster Vaccine Completed 09/09/2019, 04/02/2019 Medical Devices Implanted Type Area Wood Processing Worker Device Identifier Shelf Expiration Date Model / Serial / Lot [email or web address] [place] R+G High Viscosity Cement Bone Gentamicin Arthroplasty [id number] - [id number] Implanted:Qty: 1 on 07/30/2023 by Mart Stacy MD at [facility] Right: Shoulder [employer] [id number] 05/29/2026 [id number] / / [id number] [employer] Component Glenoid Peg Altivate Anatomic 50mm Polyethylene 521-07-250 - [id number] Implanted:Qty: 1 on 07/30/2023 by Mart Stacy MD at [facility] Right: Shoulder [employer] 09/08/2026 521-07-25 0 / / [id number] [employer] Stem Humeral Shoulder Porous Altivate Anatomic 21mm Titanium 520-08-021 - [id number] Implanted:Qty: 1 on 07/30/2023 by Mart Stacy MD at [facility] Right: Shoulder [employer] 11/08/2026 520-08-02 1 / / [id number] [employer] Head Humeral Shoulder Neutral Altivate Anatomic [id number] [employer] 520-50-220 - [id number] Implanted:Qty: 1 on 07/30/2023 by Mart Stacy MD at [facility] Right: Shoulder [employer] 08/23/2027 520-50-22 0 / / [id number] Procedures Procedure Name Priority Date/Time Associated Diagnosis Comments EGFR Routine 07/31/2023 4:36 AM CDT HEMOGLOBIN A1C Routine 07/10/2023 3:42 PM CDT Preop testing Disorders of glucose transport, unspecified LIPID PANEL Routine 02/01/2015 7:57 AM PATTERN MAKER from Last 3 Months or Most Recently Relevant to Health Maintenance Results * eGFR (07/31/2023 4:36 AM CDT) eGFR >90 >=60 mL/min/1. 73 m2 Comment: Interpretive Data Reference Interval Normal >/= 90 mL/min/1.73m2 Mildly decreased* 60 - 89 mL/min/1.73m2 Mildly to moderately decreased 45 - 59 mL/min/1.73m2 Moderately to severely decreased 30 - 44 mL/min/1.73m2 Severely decreased 15 - 29 mL/min/1.73m2 Kidney Failure < 15 mL/min/1.73m2 *Relative to young adult level Estimated glomerular filtration rate is determined by the 2020 CKD-EPI equation recommended by the National Kidney Foundation (A Unifying Approach to GFR Estimation: Recommendations of the NKF-ASK Task Force on Reassessing the Inclusion of Race in Diagnosing Kidney Disease, JASN 2020). The CKD-EPI equation should not be used for patients with unstable renal function and has not been validated in children and those over 70. Current interpretive data was last reviewed 2021. Blood 07/31/2023 4:36 AM CDT 07/31/2023 5:24 AM CDT us Cassidy Fisher NP LAB BLOOD ORDERABLES Emilee lopez Result Performing Organization Address City/State/[facility] Phone Number DANIEL [phone] [address]qu[address]jee Department [place] [address] * (ABNORMAL) Hemoglobin A1c (07/10/2023 3:42 PM CDT) Hgb A1C 5.8(H) 4.0 - 5.6 % Estimated Average Glucose 120 mg/dL DANIEL RICHEY Comment: The ADA recommends reporting an estimated Average Glucose (eAG) with all Hemoglobin A1c results using the equation derived from a study of 507 normal and diabetic adults. Minority populations were underrepresented and children were not included. (Diabetes Care 31:7201-4131, 2008). The eAG is not equivalent to a fasting glucose. Blood 07/10/2023 3:42 PM CDT 07/10/2023 6:04 PM CDT Mart Stacy MD LAB BLOOD ORDERAB[place] [address] [address]erjee Department [place] [address] * (ABNORMAL) Lipid panel (02/01/2015 7:57 AM PATTERN MAKER) Triglycerides 279(H) 0 - 199 mg/dL 02/01/2015 8:27 AM [facility] [employer] HISTORICAL RESULTS Comment: LDL (measured) to follow due to Triglycerides >250 mg/dL 12 hr pc highly recommended for Triglyceride Cholesterol 154 0 - 199 mg/dL 02/01/2015 8:27 AM PATTERN MAKER [employer] HISTORICAL RESULTS Comment: Borderline: 200-239 High Risk: >239 HDL Cholesterol 4(L) 40 - 60 mg/dL 02/01/2015 8:27 AM [facility] [employer] HISTORICAL RESULTS Comment: Major Risk < 40 mg/dL Moderate Risk 40-60 mg/dL Negative Risk > 60 mg/dL Cholesterol/HDL Ratio 38.5 02/01/2015 8:27 AM [facility] [employer] HISTORICAL RESULTS Comment: Cholesterol / HDL Ratio 3.5:1 or less is desirable. Cholesterol / HDL Ratio greater than 5:1 is considered higher risk for developing heart disease. 02/01/2015 7:57 AM PATTERN MAKER 02/01/2015 8:04 AM PATTERN MAKER Mercy Be MD LAB BLOOD ORDERABLES Final Wilma triana Performing Organization Address [facility] Co de Phone Number [employer] HISTORICAL RESULTS from Last 3 Months or Most Recently Relevant to Health Maintenance Insurance MEDICARE [employer] GENERIC MEDICARE [employer] GENERIC Advance Directives For more information, please contact: [phone] * Full Code (Latest Code Status on File) Date Activated Date Inactivated Comments 07/30/2023 12:35 PM 07/31/2023 4:49 PM Care Teams Pattern Clerk Relationship Specialty Start Date End Date Jerry Lambert MD [address] [facility] [address] [place] [address] PCP - General Internal Medicine 07/26/23
--- OUTSIDE RECORDS SUMMARY | 2024-07-23 01:23 | XMS_ITS | Encounter Summary ---
Author Organization [facility] Facility Care Team Providers Care Foreign Language Stenographer Name Role Phone Unknown, Notinfchris Primary Care Provider Unavail able Jerry Lambert MD Primary Care Provider [phone] Encounter Details Date Type Department Care Team (Latest Contact Info) Description 02/18/2015 Orders Only [facility]INCON[facility] ProviderGenny MD [address] [place], [place] [id number] Social History Tobacco Use Types Packs/Day Years Used Date Smoking Tobacco: Never Assessed Sex and Gender Information Value Date Recorded Sex Assigned at Not on file Legal Sex Male 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 Historical Provider Final Res ult documented in this encounter Visit Diagnoses Not on filedocumented in this encounter Care Teams Foreign Language Stenographer Relationship Specialty Start Date End Date Unknown, Evan PCP - General 01/24/23 07/25/23 Jerry Lambert MD [address] [place] [address] [place] [address] PCP - General Internal Medicine 07/26/23 documented as of this encounter
--- OUTSIDE RECORDS SUMMARY | 2024-07-23 01:23 | XMS_ITS | Referral Summary ---
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 Right: Shoulder [employer] [id number] 05/29/2026 [id number] / / [id number] [employer] Component Glenoid Peg Altivate Anatomic 50mm Polyethylene 521-07-250 - [id number] Implanted:Qty: 1 on 07/30/2023 by Mart Stacy MD at [facility] Right: Shoulder [employer] 09/08/2026 521-07-25 0 / / [id number] [employer] Stem Humeral Shoulder Porous Altivate Anatomic 21mm Titanium 520-08-021 - [id number] Implanted:Qty: 1 on 07/30/2023 by Mart Stacy MD at [facility] Right: Shoulder [employer] 11/08/2026 520-08-02 1 / / [id number] [employer] Head Humeral Shoulder Neutral Altivate Anatomic [id number] [place] Chrom[employer] 520-50-220 - [id number] Implanted:Qty: 1 on 07/30/2023 by Mart Stacy MD at [facility] Right: Shoulder [employer] 08/23/2027 520-50-22 0 / / [id number] Procedures Procedure Name Priority Date/Time Associated Diagnosis Comments EGFR Routine 07/31/2023 4:36 AM CDT HEMOGLOBIN A1C Routine 07/10/2023 3:42 PM CDT Preop testing Disorders of glucose transport, unspecified LIPID PANEL Routine 02/01/2015 7:57 AM WOOD FURNITURE ASSEMBLER from Last 3 Months or Most Recently [...] 4:36 AM CDT 07/31/2023 5:24 AM CDT Cassidy Fisher NP LAB BLOOD ORDERABLES Emilee lopez Result DANIEL RICHEY [address] [place] [address] * (ABNORMAL) Hemoglobin A1c (07/10/2023 3:42 PM CDT) Hgb A1C 5.8(H) 4.0 - 5.6 % Estimated Average Glucose 120 mg/dL DANIEL RICHEY Comment: The ADA recommends reporting an estimated Average Glucose (eAG) with all Hemoglobin A1c results using the equation derived from a study of 507 normal and diabetic adults. Minority populations were underrepresented and children were not included. (Diabetes Care 31:6358-4412, 2008). The eAG is not equivalent to a fasting glucose. Blood 07/10/2023 3:42 PM CDT 07/10/2023 6:04 PM CDT us Mart Stacy MD LAB BLOOD ORDERABLES Final Re sult Performing Organization Address City/[facility]/ZIP Co de Phone Number DANIEL RICHEY [address] [place] [address] * (ABNORMAL) Lipid panel (02/01/2015 7:57 AM WOOD FURNITURE ASSEMBLER) Triglycerides 279(H) 0 - 199 mg/dL 02/01/2015 8:27 AM [facility] [employer] HISTORICAL RESULTS Comment: LDL (measured) to follow due to Triglycerides >250 mg/dL 12 hr pc highly recommended for Triglyceride Cholesterol 154 0 - 199 mg/dL 02/01/2015 8:27 AM [facility] [employer] HISTORICAL RESULTS Comment: Borderline: 200-239 High Risk: >239 HDL Cholesterol 4(L) 40 - 60 mg/dL 02/01/2015 8:27 AM [facility] [employer] HISTORICAL RESULTS Comment: Major Risk < 40 mg/dL Moderate Risk 40-60 mg/dL Negative Risk > 60 mg/dL Cholesterol/HDL Ratio 38.5 02/01/2015 8:27 AM [facility] [employer] [facility] HISTORICAL RESULTS Comment: Cholesterol / HDL Ratio 3.5:1 or less is desirable. Cholesterol / HDL Ratio greater than 5:1 is considered higher risk for developing heart disease. 02/01/2015 7:57 AM WOOD FURNITURE ASSEMBLER 02/01/2015 8:04 AM WOOD FURNITURE ASSEMBLER us [facility] MD LAB BLOOD ORDERABLES Final Re sult Performing Organization Address City/[facility]/ZIP Co de Phone Number [facility] [employer] HISTORICAL RESULTS from Last 3 Months or Most Recently Relevant to Health Maintenance Insurance MEDICARE [employer] GENERIC MEDICARE [employer] GENERIC Advance Directives For more information, please contact: [phone] * Full Code (Latest Code Status on File) Date Activated Date Inactivated Comments 07/30/2023 12:35 PM 07/31/2023 4:49 PM Care Teams Residential Property Manager Relationship Specialty Start Date End Date Jerry Lambert MD [address] [place] [address] PCP - General Internal Medicine 07/26/23
--- OUTSIDE RECORDS SUMMARY | 2024-07-23 01:23 | XMS_ITS | Clinical Summary ---
Author Organization [facility] Address [address] [place] [address] Care Team Providers Care Ship Loader Name Role Phone Jerry Lambert MD Primary Care Provider [phone] Allergies No known active allergies Medications amLODIPine 10 MG tablet 5 mg. 08/08/2019 Active WELCHOL 3.75 g Pack 11/16/2019 Active diclofenac EC 75 MG tablet 11/17/2019 Active finasteride 5 MG tablet 09/05/2019 Active Olmesartan Medoxomil 40 MG Tab 11/09/2019 Active traZODone 50 MG tablet 09/05/2019 Active fish oil 1000 MG Cap capsule Take 3,600 mg by mouth daily. Active NEXLIZET 180-10 MG Tab 12/03/2020 Active Active Problems No known active problems Immunizations Immunization Administration Dates Next Due Fluzone High Dose - >Age 65 (Prefilled Syringe) 01/07/2019,01/13/2018,01/17/2016 Pneumococcal (Prevnar 13) 01/31/2019 Shingrix 09/09/2019,04/02/2019 Tdap (Boostrix) 04/02/2019 Social History Tobacco Use Types Packs/Day Years Used Date Smoking Tobacco: Never Smokeless Tobacco: Never Alcohol Use Standard Drinks/Week Comments Yes 0 (1 standard drink = 0.6 oz pur e alcohol) occasionally PHQ-2 Answer Date Recorded PHQ-2 Score - If the patient scores above 3, please move on to questions 3-9 0 12/09/2019 Sex and Gender Information Value Date Recorded Sex Assigned at Not on file Legal Sex Male 10:27 AM CDT Gender Identity Not on file Sexual Orientation Not on file Last Filed Vital Signs Vital Sign Reading Time Taken Comments Blood Pressure 99/51 01/18/2021 6:45 AM CDT Pulse 62 01/18/2021 6:45 AM CDT Temperature 36.3 C (97.3 F) 01/18/2021 6:18 AM CDT Respiratory Rate 16 01/18/2021 6:45 AM CDT Oxygen Saturation 100% 01/18/2021 6:45 AM CDT Inhaled Oxygen Concentration - - Weight 97.5 kg (215 lb) 01/18/2021 5:28 AM CDT Height 188 cm (6' 2 ) 01/18/2021 5:28 AM CDT Body Mass Index 27.6 01/18/2021 5:28 AM CDT Plan of Treatment Health Maintenance Due Date Last Done Comments Hepatitis C 01/07/1968 Annual Medicare Wellness Visit 2015 Pneumococcal Vaccine: 50+ Years (2 of 2 - PPSV23) 02/01/2020 01/31/2019 COVID-19 Vaccine (4 - 2023-2 5 season) 2023 01/02/2021, 06/13/2020, 05/22/2020 RSV Immunization or 60+ Years (1 - 1-dose 75+ series) 2025 DTaP, Tdap and Td Vaccines ( 2 - Td or Tdap) 04/02/2029 04/02/2019 Colorectal Cancer Screening Colonoscopy (10 Years) 01/18/2031 01/18/2021, 01/18/2021 Zoster Vaccines Completed 09/09/2019, 04/02/2019 Meningococcal B Vaccine Aged Out No l onger eligible based on patient's age to complete this topic Meningococcal Vaccine Aged Out No torsten elvin eligible based on patient's age to complete this topic RSV Immunizations Under 20 Months Aged Out No longer eligible b ased on patient's age to complete this topic Procedures Procedure Name Priority Date/Time Associated Diagnosis Comments COLONOSCOPY Routine 01/18/2021 5:30 AM CDT from Last 3 Months or Most Recently Relevant to Health Maintenance Insurance INSURANCE Care Teams Ship Loader Relationship Specialty Start Date End Date Jerry Lambert MD [address] - [facility] [address] [place] [address] PCP - General INTERNAL MEDICINE 10/22/19
--- OUTSIDE RECORDS SUMMARY | 2024-07-23 01:23 | XMS_ITS | Encounter Summary ---
Author Organization [facility] Facility Care Team Providers Care Director Nursing Service Name Role Phone Unknown, Notinfile Primary Care Provider Unavail able Jerry Lambert MD Primary Care Provider [phone] Encounter Details Date Type Department Care Team (Latest Contact Info) Description 02/15/2015 Orders Only [facility] CLINCONV ProviderGenny MD [address] [place] [id number] Social History Tobacco Use Types Packs/Day Years Used Date Smoking Tobacco: Never Assessed Sex and Gender Information Value Date Recorded Sex Assigned at Not on file Legal Sex Male 2:24 AM MANAGER FIBER Gender Identity Not on file Sexual Orientation Not on file documented as of this encounter Plan of Treatment Not on file documented as of this encounter Procedures Procedure Name Priority Date/Time Associated Diagnosis Comments PROCEDURE - RESULT 02/15/2015 12 :00 AM MANAGER FIBER PROCEDURE - RESULT 02/15/2015 12 :00 AM MANAGER FIBER documented in this encounter Results * PROCEDURE - RESULT (02/15/2015 12:00 AM MANAGER FIBER) Narrative 02/15/2015 12:00 AM MANAGER FIBER Ordered by an unspecified provider. Historical Provider Final Res ult * PROCEDURE - RESULT (02/15/2015 12:00 AM MANAGER FIBER) Narrative 02/15/2015 12:00 AM MANAGER FIBER Ordered by an unspecified provider. us Historical Provider Final Res ult documented in this encounter Visit Diagnoses Not on filedocumented in this encounter Care Teams Director Nursing Service Relationship Specialty Start Date End Date Unknown, Notinfile PCP - General 01/24/23 07/25/23 Jerry Lambert MD [address] [facility] [address] INTERNAL MEDICINE [place] [id number] PCP - General Internal Medicine 07/26/23 documented as of this encounter
--- OUTSIDE RECORDS SUMMARY | 2024-07-23 01:23 | XMS_ITS | Encounter Summary ---
Author Organization [facility] Facility Care Team Providers Care Hardware Supplies Sales Representative Name Role Phone Unknown, Notinfchris Primary Care Provider Unavail able Jerry Lambert MD Primary Care Provider [phone] Encounter Details Date Type Department Care Team (Latest Contact Info) Description 02/11/2015 Orders Only [facility] CLINCONV ProviderGenny MD [address] [place], [place] [id number] Social History Tobacco Use Types Packs/Day Years Used Date Smoking Tobacco: Never Assessed Sex and Gender Information Value Date Recorded Sex Assigned at Not on file Legal Sex Male 2:24 AM SEX CRIMES DETECTIVE Gender Identity Not on file Sexual Orientation Not on file documented as of this encounter Plan of Treatment Not on file documented as of this encounter Procedures Procedure Name Priority Date/Time Associated Diagnosis Comments PROCEDURE - RESULT 02/17/2015 12 :00 AM SEX CRIMES DETECTIVE documented in this encounter Results * PROCEDURE - RESULT (02/17/2015 12:00 AM SEX CRIMES DETECTIVE) Narrative 02/17/2015 12:00 AM SEX CRIMES DETECTIVE Ordered by an unspecified provider. us Historical Provider Final Res ult documented in this encounter Visit Diagnoses Not on filedocumented in this encounter Care Teams Hardware Supplies Sales Representative Relationship Specialty Start Date End Date Unknown, Evan PCP - General 01/24/23 07/25/23 Jerry Lambert MD [address] [place] [address] PCP - General Internal Medicine 07/26/23 documented as of this encounter
--- OUTSIDE RECORDS SUMMARY | 2024-07-23 01:23 | XMS_ITS | Encounter Summary ---
Author Organization [facility] Facility Care Team Providers Care Breakfast Host Name Role Phone Unknown, Notinfchris Primary Care Provider Unavail able Jerry Lambert MD Primary Care Provider [phone] Encounter Details Date Type Department Care Team (Latest Contact Info) Description 01/29/2015 Orders Only [facility] CLINCONV ProviderGenny MD [address] [place], [place] [id number] Social History Tobacco Use Types Packs/Day Years Used Date Smoking Tobacco: Never Assessed Sex and Gender Information Value Date Recorded Sex Assigned at Not on file Legal Sex Male 2:24 AM SCRATCH BRUSHER Gender Identity Not on file Sexual Orientation Not on file documented as of this encounter Plan of Treatment Not on file documented as of this encounter Procedures Procedure Name Priority Date/Time Associated Diagnosis Comments PROCEDURE - RESULT 02/15/2015 12 :00 AM SCRATCH BRUSHER documented in this encounter Results * PROCEDURE - RESULT (02/15/2015 12:00 AM SCRATCH BRUSHER) Narrative 02/15/2015 12:00 AM SCRATCH BRUSHER Ordered by an unspecified provider. us Historical Provider Final Res ult documented in this encounter Visit Diagnoses Not on filedocumented in this encounter Care Teams Breakfast Host Relationship Specialty Start Date End Date Unknown, Evan PCP - General 01/24/23 07/25/23 Jerry Lambert MD [address] [place] [address] PCP - General Internal Medicine 07/26/23 documented as of this encounter
[2024-07-23 07:13] VITALS: BP 153/90; PULSE 61; RESP 16; TEMP 36.2; O2SAT 97; BMI 28.4
[2024-07-23] MEDS: LACTATED RINGERS 1,000 ML 150 ML IV CONT (07:22)
[2024-07-23 07:24] LABS: Glucose Point of Care 112 mg/dl (65-105)
--- NOTE | 2024-07-23 08:00 | WPDANESEPPF ---
Anes - Initial Pre Proc Eval Procedure: Operation Date: 07/23/24 08:00 Proposed Procedures p Colonoscopy - Tay Mueller MD s [facility] Hemorrhoid Treatment - Tay Mueller MD Date/Time: 07/23/24 08:00 Surgeon: Tay Mueller MD Pre Op Diagnosis: Hemorrhage of anus and rectum Patient Data Age: 74 Gender: M Height: 1.88 m Weight: 100.4 kg Last Vital Signs Temp 97.2 F L 07/23/24 07:13 Pulse 61 07/23/24 07:13 Resp 16 07/23/24 07:13 BP 153/90 H 07/23/24 07:13 Pulse Ox 97 07/23/24 07:13 O2 Del Method Room Air 07/23/24 07:13 Allergies Allergy/AdvReac Type Severity Reaction Status Date / Time SARY Inhibitors Allergy Unknown Cough Verified 07/23/24 07:11 Nhjican-TZS-XyI Reductase Allergy Unknown Joint Pain Verified 07/23/24 07:11 Inhibitor (Gdwwqzz-Jxg-Owa Reductase Inhibitor) Home Medications ?Medication ?Instructions ?Recorded ?Confirmed ?Type omega-3 fatty acids 1,000 mg 2,000 mg PO BID 04/02/19 07/14/24 History capsule (Fish Oil Concentrate) calcium carb and lactate 200 1 tablet PO DAILY 09/07/19 07/23/24 History mg-vitamin D3 6.25 mcg (250 unit) tablet vitamin B complex 1 cap PO DAILY 05/04/20 07/23/24 History WelChol 3.75 gram oral powder See Rx Instructions .Route 07/01/23 07/23/24 Rx packet (colesevelam) .COMPLEX #90 packets omega 8-dye-ial-fish oil 1,000 mg 2 cap PO BID 11/07/23 07/23/24 History (120 mg-180 mg) capsule (Fish Oil) amlodipine 10 mg tablet See Rx Instructions .Route 02/03/24 07/23/24 Rx .COMPLEX #90 tabs terbinafine 250 mg oral ea miscellaneous .1 x monthly 03/17/24 07/06/24 History tablet-hydroxypropyl chitosan 1 % topical kit bempedoic acid 180 mg-ezetimibe 10 See Rx Instructions .Route 06/17/24 07/23/24 Rx mg tablet (Nexlizet) .COMPLEX #90 tabs diclofenac sodium 75 mg See Rx Instructions .Route 06/17/24 07/23/24 Rx tablet,delayed release .COMPLEX #180 tabs metformin 500 mg tablet See Rx Instructions .Route 06/17/24 07/23/24 Rx .COMPLEX #180 tabs nebivolol 10 mg tablet See Rx Instructions .Route 06/17/24 07/23/24 Rx .COMPLEX #90 tabs trazodone 50 mg tablet See Rx Instructions .Route 06/17/24 07/23/24 Rx .COMPLEX #180 tabs hydrocortisone acetate 25 mg 25 mg RECTAL DAILY PRN hemorrhoids 07/06/24 07/14/24 Rx rectal suppository (Anusol-HC) #12 ea vibegron 75 mg tablet (Gemtesa) 75 mg PO DAILY #1 tablet 07/14/24 07/23/24 Rx azithromycin 250 mg tablet See Rx Instructions PO .COMPLEX #6 07/16/24 Rx (Zithromax Z-Filemon) tabs benzonatate 200 mg capsule 200 mg PO TID PRN cough #40 caps 07/16/24 Rx Laboratory Tests 07/23/24 07:17 POC Capillary Glucose 112 H mg/dl (65-105) Patient hx anesthesia problems: none Family hx anesthesia problems: none Results Review: All pre-operative results and documents have been reviewed as part of the pre-operative evaluation. [facility] Past Medical History Medical History BMI 30.0-30.9,adult BRBPR (bright red blood per rectum) Muscle cramps Follow up BMI 29.0-29.9,adult Prostate cancer Pneumaturia History of elevated PSA Colovesical fistula Colonic fistula Bleeding internal hemorrhoids Abnormal EKG History of bruising easily History of stress test Rupture of left Achilles tendon Prostate cancer screening Actinic keratosis Hyperkalemia Foot pain DJD (degenerative joint disease) Hx of colonic polyps Colon cancer screening BMI 27.0-27.9,adult Inclusion cyst Boil, back Chronic low back pain Peripheral neuropathy Ectopic beats Encounter for routine adult health examination without abnormal findings Elevated homocysteine Encounter for special screening examination for neoplasm of prostate Trigger finger of right hand Encounter for routine adult health examination with abnormal findings Hearing loss Statin intolerance Encounter for Medicare annual wellness exam ALICIA on CPAP Hyperlipidemia Benign essential hypertension BMI 28.0-28.9,adult Hx of Walters's palsy On technician terminal and repeater drug therapy Diverticular disease Surgical History Surgical History History of Achilles tendon repair History of abdominal surgery History of prostate surgery Status post total knee replacement, left History of bowel resection Family History Family History Mother Family history of Alzheimer's disease Father Family history of primary malignant neoplasm of liver Social History Social History Smoking status: Never smoker Second hand tobacco smoke exposure: No Alcohol intake: never Substance use: never Substance use type: does not use Lack of Transportation: No Lack of Food: Never True Current Housing: I Have Housing Concerned About Future Housing: No Difficulty Paying Gas/Electric Bills: No Difficulty Paying for Meds: No Currently Unemployed: No Education: Bachelor's Degree Difficulty w/ Childcare or Family Care: No Living arrangements: with family Gender identity (if verbalized by the patient): Male Spiritual care concerns: No Anes - Eval Final PreProcedure Day of Procedure 07/23/24 08:00 Patient weight: normal Heart: regular rate and rhythm Lungs: clear to auscultation Airway: Mallampati scale class II Neurological: alert and oriented Last oral intake: >/= 8 hours ASA classification: III Emergent: no Anesthetic plan: proceed Anesthesia type and monitoring: general GIVS and standard monitoring Results Review: All pre-operative results and documents have been reviewed as part of the pre-operative evaluation. Informed Consent: The patient's anesthetic plan and its attendant risks and benefits were discussed with the patient/family/POA. Questions were solicited and answers provided to the satisfaction of the patient/family/POA.
--- NOTE | 2024-07-23 08:05 | WPDHPUPDATE1 ---
History and Physical Update Update Date/Time: 07/23/24 08:05 History and Physical has been reviewed, including an updated exam of the patient. There are NO changes in the patient's condition. Risks, benefits, and alternatives have been discussed and questions answered. Patient agrees to proceed with procedure.
[2024-07-23 08:19] VITALS: BP 125/68; PULSE 50; RESP 22; O2SAT 97
[2024-07-23 08:29] VITALS: BP 124/74; PULSE 54; RESP 20; O2SAT 98
[2024-07-23 08:39] VITALS: BP 139/77; PULSE 56; RESP 20; O2SAT 100
== END 2024-07-23 08:54 | disposition home or self-care (01) ==
PROVIDERS: PCP Internal Medicine; Referring Provider Nurse Practitioner Family; Visit Provider Internal Medicine Gastroenterology
PROC: 0DJD8ZZ Inspection of Lower Intestinal Tract, Via Natural or Artificial Opening Endoscopic (ICD-10-PCS; CPT 45378; principal; 2024-07-23 08:00)
PROC: (CPT 46930; 2024-07-23 08:00)
DX: K55.20 Angiodysplasia of colon without hemorrhage (principal); K57.30 Diverticulosis of large intestine without perforation or abscess without bleeding; I10 Essential (primary) hypertension; N40.0 Benign prostatic hyperplasia without lower urinary tract symptoms; E78.5 Hyperlipidemia, unspecified; E87.5 Hyperkalemia; G47.33 Obstructive sleep apnea (adult) (pediatric); M19.90 Unspecified osteoarthritis, unspecified site; L57.0 Actinic keratosis; G89.29 Other chronic pain; M54.50 Low back pain, unspecified; G62.9 Polyneuropathy, unspecified; R25.2 Cramp and spasm; Z79.84 Long term (current) use of oral hypoglycemic drugs; Z79.899 Other long term (current) drug therapy; Z99.89 Dependence on other enabling machines and devices; Z98.890 Other specified postprocedural states; Z98.0 Intestinal bypass and anastomosis status; Z90.49 Acquired absence of other specified parts of digestive tract; Z86.0100 Personal history of colon polyps, unspecified; Z92.3 Personal history of irradiation; Z85.46 Personal history of malignant neoplasm of prostate; Z87.19 Personal history of other diseases of the digestive system; Z80.0 Family history of malignant neoplasm of digestive organs
CPT/HCPCS: 45382; 82948; J2704; J7120

== ENCOUNTER 2024-08-06 07:35 | Outpatient (CLI) | payer MEDICARE, SELFPAY ==
--- NOTE | ~2024-08-06 | US_ITS ---
Limited ABDOMINAL ULTRASOUND (Doppler ultrasound interrogation techniques used as needed for this exa m.) Ordering provider: Jerry Lamebrt MD History: . K76.0 - Fatty (change of) liver, not elsewhere classified . Comparison: None. FINDINGS: PANCREAS: Normal echotexture and size. PORTAL VEIN: Hepatopedal flow demonstrated. LIVER: Normal size and bright echotexture. No focal hepatic lesions or perihepatic fluid collections are identified. BILIARY DUCTS: No intra or extrahepatic biliary dilation. Common bile duct measures 4.1 mm in diamete r which is normal for patient's age. GALLBLADDER: None mobile echogenic foci are noted which are suggestive of adenomyomatosis. The larges t measures 0.4 x 0.4 x 0.4 cm. No definite stones, sludge, gallbladder wall thickening or pericholecy stic fluid. Negative sonographic Riley's sign. IVC: Patent FREE FLUID: None visualized within the upper abdomen. IMPRESSION: Adenomyomatosis of the gallbladder. Fat infiltration of the liver Otherwise, normal Limited abdominal ultrasound. Reviewed, dictated and finalized at location A. IMPRESSION: Adenomyomatosis of the gallbladder. Fat infiltration of the liver Otherwise, no rmal Limited abdominal ultrasound.
== END 2024-08-06 07:36 | disposition home or self-care (01) ==
LOC: MICIMG 07:36
PROVIDERS: PCP Internal Medicine; Visit Provider Internal Medicine
DX: K76.0 Fatty (change of) liver, not elsewhere classified (principal); R79.89 Other specified abnormal findings of blood chemistry; D13.5 Benign neoplasm of extrahepatic bile ducts
CPT/HCPCS: 76705

== ENCOUNTER 2024-08-18 08:33 | Outpatient (CLI) | payer MEDICARE, SELFPAY ==
--- NOTE | ~2024-08-18 | NM_ITS ---
EXAMINATION: NM hepatobiliary w pharm DATE: 08/18/2024 11:27 INDICATION: Abnormal findings on other diagnostic imaging. Diffuse hepatic steatosis and gallbladder adenomyomatosis. COMPARISON: None. TECHNIQUE: 4.8 mCi Tc-99m mebrofenin (Choletec) was administered intravenously. Scintigraphic images of the abdomen were obtained for 30 minutes. 2.0 mcg sincalide (Kinevac) was administered by slow in travenous infusion, and imaging was continued for an additional 30 minutes. Gallbladder ejection frac tion was calculated by the technologist. FINDINGS: There is normal clearance of radiotracer from the blood pool. There is homogeneous tracer uptake by t he liver. Activity progresses to the gallbladder and bowel. The gallbladder ejection fraction (GBEF) is 73% (normal 10-90%, but most patient with gallbladder dysfunction have GBEF < 35% which does over lap with the normal range). IMPRESSION: 1. Normal hepatobiliary scan. Reviewed, dictated and finalized at location A.
--- OUTSIDE RECORDS SUMMARY | 2024-08-18 08:44 | XMS_ITS | Encounter Summary ---
Author Organization [facility] Facility Care Team Providers Care Associate Manager Affiliate Marketing Name Role Phone Unknown, Notinfile Primary Care Provider Unavail able Jerry Lambert MD Primary Care Provider [phone] Encounter Details Date Type Department Care Team (Latest Contact Info) Description 02/18/2015 Orders Only [facility] CLINCONV ProviderGenny MD [address] [place], [place] [id number] Social History Tobacco Use Types Packs/Day Years Used Date Smoking Tobacco: Never Assessed Sex and Gender Information Value Date Recorded Sex Assigned at Not on file Legal Sex Male 2:24 AM AIRPLANE DESIGNER Gender Identity Not on file Sexual Orientation Not on file documented as of this encounter Plan of Treatment Not on file documented as of this encounter Procedures Procedure Name Priority Date/Time Associated Diagnosis Comments SCAN - LABS 02/18/2015 12:00 AM AIRPLANE DESIGNER documented in this encounter Results * SCAN - LABS (02/18/2015 12:00 AM AIRPLANE DESIGNER) Narrative 02/18/2015 12:00 AM AIRPLANE DESIGNER Ordered by an unspecified provider. Historical Provider Final Res ult documented in this encounter Visit Diagnoses Not on filedocumented in this encounter Care Teams Associate Manager Affiliate Marketing Relationship Specialty Start Date End Date Unknown, Evan PCP - General 01/24/23 07/25/23 Jerry Lambert MD [address] [place] [address] PCP - General Internal Medicine 07/26/23 documented as of this encounter
--- OUTSIDE RECORDS SUMMARY | 2024-08-18 08:44 | XMS_ITS | Clinical Summary ---
Author Organization [facility] [address] [place] [id number] Care Team Providers Care Negative Retoucher Name Role Phone Jerry Lambert MD Primary Care Provider [phone] Allergies No known active allergies Medications traZODone [...] morning Active docusate sodium (COLACE) 100 mg capsuleIndicatio ns:constipation Take 1 capsule (100 mg total) by mouth 2 (two) times a day For constipation. Hold if having loose stools or diarrhea. 30 capsule 1 4 Active HYDROcodone-acet aminophen (NORCO) 5-325 mg per tabletIndication s:Pain Take 1-2 tablets every 4 hours as needed for pain 32 tablet 4 Active Additional Information Patient not taking.Reported on 09/16/2023 aspirin 81 mg enteric coated tablet Take 1 tablet (81 mg total) by mouth daily 30 tablet 4 Active hydrocortisone (ANUSOL-HC) 25 mg suppository USE 1 SUPPOSITORY RECTALLY DAILY NEEDED FOR HEMORRHOIDS 5 Active benzonatate (TESSALON) 200 mg capsule TAKE 1 CAPSULE BY MOUTH THREE TIMES A DAY NEEDED FOR COUGH 5 Active azithromycin (ZITHROMAX) 250 mg tablet TAKE 2 TABLETS BY MOUTH TODAY, THEN TAKE 1 TABLET DAILY FOR 4 DAYS DIRECTED 5 Active Active Problems Problem Noted Date Diagnosed Date Arthritis of shoulder region, right 07/30/2023 Arthritis of right shoulder region 07/11/2023 Encounters Date Type Department Care Team Description 07/29/2024 10:15 AM CDT Office Visit [facility] Orthopedics and Sports Medicine at [address] [phone] Mart Stacy MD History of right shoulder replacement (Primary Dx) 07/29/2024 10:05 AM CDT - 07/29/2024 11:59 PM CDT Hospital Encounter [facility] [address] [place] [phone] Discharge Disposition: Discharge to home or self care from Last 3 Months Surgical History Surgery Date Site/Laterality Comments CT [...] on file 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 Gender Identity Not on file Sexual Orientation [...] CDT Inhaled Oxygen Concentration - - Weight 104.3 kg (230 lb) 07/29/2024 9:54 AM CDT Height 188 cm (6' 2 ) 07/29/2024 9:54 AM CDT Body Mass Index 29.53 07/29/2024 9:54 AM CDT Plan of Treatment Health Maintenance Due Date Last Done Comments Colon Cancer Screening-Colonoscopy 1950 Depression Screening 1950 Hepatitis C Screening 1950 Hepatitis B Screening 01/07/1968 Well Visit 65+ 2015 Covid-19 Vaccine (2023-2 5 season) 2023 02/01/2023, 01/29/2022, 10/19/2021, Additional history exists Fall Risk Assessment 07/30/2024 07/31/2023 Influenza Vaccine (Season Ended) 2024 01/11/2023, 01/29/2022, 01/02/2021, Additional history exists DTaP/Tdap/Td Vaccine (3 - Td or Tdap) 04/02/2029 04/02/2019, 12/24/2012 Pneumococcal vaccine 65+ Completed 01/31/2019, 05/2014 Zoster Vaccine Completed 09/09/2019, 04/02/2019 Medical Devices Implanted Type Area Computer Terminal Operator Device Identifier Shelf Expiration Date Model / Serial / Lot [employer] Palacos R+G High Viscosity Cement Bone Gentamicin Arthroplasty [id number] - [id number] Implanted:Qty: 1 on 07/30/2023 by Mart Stacy MD at [facility] Right: Shoulder [employer] [id number] 05/29/2026 [id number] / / [id number] [employer] Component Glenoid Peg Altivate Anatomic 50mm Polyethylene 521-07-250 - [id number] Implanted:Qty: 1 on 07/30/2023 by Mart Stacy MD at [facility] Right: Shoulder [employer] 09/08/2026 521-07-25 0 / [id number] [employer] Stem Humeral Shoulder Porous Altivate Anatomic 21mm Titanium 520-08-021 - [id number] Implanted:Qty: 1 on 07/30/2023 by Mart Stacy MD at [facility] Right: Shoulder [employer] 11/08/2026 520-08-02 [id number] [employer] Head Humeral Shoulder Neutral Altivate Anatomic 46g19id [place] Chromium 520-50-220 - [id number] Implanted:Qty: 1 on 07/30/2023 by Mart Stacy MD at [facility] Right: Shoulder [employer] 08/23/2027 520-50-22 0 / / [id number] Procedures Procedure Name Priority Date/Time Associated Diagnosis Comments XR SHOULDER RIGHT 2 OR MORE VIEWS Schedule Routine, Read Routine (OP Routine) 07/29/2024 12:49 PM CDT History of right shoulder replacement from Last 3 Months Results * XR Shoulder Right 4 Views (07/29/2024 12:49 PM CDT) Anatomical Region Laterality Modality Upper Extremities, Shoulder Right Comp uted Radiography Narrative 07/29/2024 12:49 PM CDT XR 4 view right shoulder demonstrates reduced anatomic total shoulder in acceptable position without signs of loosening or failure us Mart Stacy MD IMG XR PROCEDURES Final Resul t from Last 3 Months Insurance MEDICARE [address] [employer] GENERIC MEDICARE RAILROAD COMMERCIAL GENERIC Advance Directives For more information, please contact: [phone] * Full Code (Latest Code Status on File) Date Activated Date Inactivated Comments 07/30/2023 12:35 PM 07/31/2023 4:49 PM Care Teams Negative Retoucher Relationship Specialty Start Date End Date Jerry Lambert MD [address] [facility] [address] [place] [address] PCP - General Internal Medicine 07/26/23
--- OUTSIDE RECORDS SUMMARY | 2024-08-18 08:44 | XMS_ITS | Encounter Summary ---
Author Organization [facility] Facility Care Team Providers Care Research Physician Name Role Phone Unknown, Notinfchris Primary Care Provider Unavail able Jerry Lambert MD Primary Care Provider [phone] Encounter Details Date Type Department Care Team (Latest Contact Info) Description 02/11/2015 Orders Only [facility] CLINCON[facility] ProviderGenny MD [address] [place], [place] [id number] Social History Tobacco Use Types Packs/Day Years Used Date Smoking Tobacco: Never Assessed Sex and Gender Information Value Date Recorded Sex Assigned at Not on file 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 us Historical Provider Final Res ult documented in this encounter Visit Diagnoses Not on filedocumented in this encounter Care Teams Research Physician Relationship Specialty Start Date End Date Unknown, Evan PCP - General 01/24/23 07/25/23 Jerry Lambert MD [address] [place] [address] [place] [address] PCP - General Internal Medicine 07/26/23 documented as of this encounter
--- OUTSIDE RECORDS SUMMARY | 2024-08-18 08:44 | XMS_ITS | Encounter Summary ---
Author Organization [facility] Facility Care Team Providers Care Pipelines Supervisor Name Role Phone Unknown, Notinfchris Primary Care Provider Unavail able Jerry Lambert MD Primary Care Provider [phone] Encounter Details Date Type Department Care Team (Latest Contact Info) Description 01/29/2015 Orders Only [facility] CLINCONV ProviderGenny MD [address] [place], [place] [phone] Social History Tobacco Use Types Packs/Day Years Used Date Smoking Tobacco: Never Assessed Sex and Gender Information Value Date Recorded Sex Assigned at Not on file 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 us Historical Provider Final Res ult documented in this encounter Visit Diagnoses Not on filedocumented in this encounter Care Teams Pipelines Supervisor Relationship Specialty Start Date End Date Unknown, Evan PCP - General 01/24/23 07/25/23 Jerry Lambert MD [address] [place] [address] [place] [address] PCP - General Internal Medicine 07/26/23 documented as of this encounter
--- OUTSIDE RECORDS SUMMARY | 2024-08-18 08:44 | XMS_ITS | Referral Summary ---
Author Organization [facility] [address] [place] [phone] Care Team Providers Care Academic Vice President Name Role Phone Jerry Lambert MD Primary Care Provider [phone] Encounters Date Type Department Care Team Description 07/29/2024 10:05 AM CDT - 07/29/2024 11:59 PM CDT Hospital Encounter [facility] [id number] [place] [phone] Discharge Disposition: Discharge to home or self care 07/29/2024 10:15 AM CDT Office Visit [facility] Orthopedics and Sports Medicine at [address] [phone] Mart Stacy MD History of right shoulder replacement (Primary Dx) from Last 3 Months Allergies No known active allergies Medications traZODone [...] on file 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 Gender Identity Not on file Sexual Orientation [...] 07/29/2024 9:54 AM CDT Plan of Treatment Not on file Medical Devices Implanted Type Area Sterile Process Coordinator Device Identifier Shelf Expiration Date Model / Serial / Lot [employer] Palacos R+G High Viscosity Cement Bone Gentamicin Arthroplasty [id number] - [id number] Implanted:Qty: 1 on 07/30/2023 by Mart Stacy MD at [facility] Right: Shoulder [employer] [id number] 05/29/2026 [id number] / / [id number] Component Glenoid Peg Altivate Anatomic 50mm Polyethylene 521-07-250 - [id number] Implanted:Qty: 1 on 07/30/2023 by Mart Stacy MD at [facility] Right: Shoulder [employer] 09/08/2026 521-07-25 0 / / [id number] [employer] Stem Humeral Shoulder Porous Altivate Anatomic 21mm Titanium 520-08-021 - [id number] Implanted:Qty: 1 on 07/30/2023 by Mart Stacy MD at [facility] Right: Shoulder [employer] 11/08/2026 520-08-02 / / [id number] [employer] Head Humeral Shoulder Neutral Altivate Anatomic 56z67sb [place] Chromium 520-50-220 - [id number] Implanted:Qty: 1 on 07/30/2023 by Mart Stacy MD at [facility] Right: Shoulder [employer] 08/23/2027 520-50-22 0 / / [id number] Procedures Procedure Name Priority Date/Time Associated Diagnosis [...] t from Last 3 Months Insurance MEDICARE [employer] COMMERCIAL GENERIC MEDICARE RAILROAD COMMERCIAL GENERIC Advance Directives For more information, please contact: [phone] * Full Code (Latest Code Status on File) Date Activated Date Inactivated Comments 07/30/2023 12:35 PM 07/31/2023 4:49 PM Care Teams Academic Vice President Relationship Specialty Start Date End Date Jerry Lambert MD [address] [place] [address] [place] [address] PCP - General Internal Medicine 07/26/23
--- OUTSIDE RECORDS SUMMARY | 2024-08-18 08:44 | XMS_ITS | Clinical Summary ---
Author Organization [facility] Address [address] [place] [address] Care Team Providers Care Litigation Legal Secretary Name Role Phone Jerry Lambert MD Primary Care Provider [phone] Allergies No known active allergies Medications amLODIPine [...] to Health Maintenance Insurance INSURANCE Care Teams Litigation Legal Secretary Relationship Specialty Start Date End Date Jerry Lambert MD [address] [place] [address] PCP - General INTERNAL MEDICINE 10/22/19
--- OUTSIDE RECORDS SUMMARY | 2024-08-18 08:44 | XMS_ITS | Encounter Summary ---
Author Organization [facility] Facility Care Team Providers Care Watch Manufacturing Supervisor Name Role Phone Unknown, Notinfile Primary Care Provider Unavail able Jerry Lambert MD Primary Care Provider [phone] Encounter Details Date Type Department Care Team (Latest Contact Info) Description 02/15/2015 Orders Only [facility] CLINCONV ProviderGenny MD [address] [place] [id number] Social History Tobacco Use Types Packs/Day Years Used Date Smoking Tobacco: Never Assessed Sex and Gender Information Value Date Recorded Sex Assigned at Not on file 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 Historical Provider Final Res ult * PROCEDURE - RESULT (02/15/2015 12:00 AM MOTOR AND CHASSIS INSPECTOR) Narrative 02/15/2015 12:00 AM MOTOR AND CHASSIS INSPECTOR Ordered by an unspecified provider. us Historical Provider Final Res ult documented in this encounter Visit Diagnoses Not on filedocumented in this encounter Care Teams Watch Manufacturing Supervisor Relationship Specialty Start Date End Date Unknown, Notinfile PCP - General 01/24/23 07/25/23 Jerry Lambert MD [address] [facility] [address] INTERNAL MEDICINE [place] [id number] PCP - General Internal Medicine 07/26/23 documented as of this encounter
== END 2024-08-18 08:34 | disposition home or self-care (01) ==
PROVIDERS: PCP Internal Medicine; Visit Provider Internal Medicine
DX: R93.5 Abnormal findings on diagnostic imaging of other abdominal regions, including retroperitoneum (principal)
CPT/HCPCS: 78227; A9537; J2805